=== PATIENT | female | born 1960 | race Caucasian/White ===

== ENCOUNTER 2020-05-30 08:16 | Outpatient (CLI) | payer OTHER ==
--- NOTE | 2020-05-30 08:41 | ULT ---
Exam: Transabdominal pelvic ultrasound HISTORY: Previous hysterectomy. Lower abdominal pain. TECHNIQUE: Transabdominal imaging of the pelvis is performed. Ovaries are interrogated with grayscale , color flow, Doppler imaging and spectral waveform analysis FINDINGS: Uterus: Surgically absent Pelvis: No mass, lymphadenopathy or free fluid Right ovary: Normal cortical echotexture. Right ovary measures 2.4 x 1.7 x 1.0 cm Left ovary: Normal cortical echotexture. Left ovary measures 1.7 x 2.4 x 1.1 cm. Ovarian Doppler: Vascular flow to the left and right ovary IMPRESSION: No acute abnormality within the pelvis.
== END 2020-05-30 08:17 | disposition home or self-care (01) ==
LOC: BICULT 08:16
PROVIDERS: ATTEND Family Medicine
DX: N80.9 Endometriosis, unspecified (principal); Z90.710 Acquired absence of both cervix and uterus
CPT/HCPCS: 76856; 93976